=== PATIENT | male | born 1995 | race Caucasian/White ===

== ENCOUNTER 2016-12-26 00:14 | Emergency (ER) | payer SELFPAY ==
[~2016-12-26] VITALS: Ht 177.8 cm; Wt 95.5 kg
[2016-12-26 00:16] VITALS: BP 151/96
== END 2016-12-26 02:40 | disposition left against medical advice (07) ==
LOC: ED 02:30
DX: R10.9 Unspecified abdominal pain (principal); Z53.21 Procedure and treatment not carried out due to patient leaving prior to being seen by health care provider

== ENCOUNTER 2017-01-19 19:10 | Inpatient (IN) | payer OTHER ==
[~2017-01-19] VITALS: Ht 180.3 cm; Wt 93.8 kg
[2017-01-19] MEDS ORDERED: SODIUM CHLORIDE 0.9% 1,000ML IVBOLUS ONE (19:30)
[2017-01-19] MEDS ORDERED: ONDANSETRON 2MG/ML, 2ML IVPush ONE (19:30)
[2017-01-19] MEDS ORDERED: OXYC-302 PO (19:50)
[2017-01-19] MEDS ORDERED: OMEP20TA62 PO (19:50)
[2017-01-19] MEDS ORDERED: ONDANSETRON 2MG/ML, 2ML ONE (19:53)
[2017-01-19] MEDS ORDERED: HYDROmorphone 1 MG/ML, 1ML ONE ×2 (19:53→20:56)
[2017-01-19 19:54] LABS: ASPARTATE AMINO TRANSFERASE 13 U/L (15-37); BLOOD UREA NITROGEN 10 mg/dL (7-18)
[2017-01-19] MEDS: HYDROmorphone 1 MG/ML, 1ML IVPush PRN ×2 (20:00→20:58)
[2017-01-19] MEDS ORDERED: ACETAMINOPHEN 325 MG TABLET PO PRN (23:30)
[2017-01-19] MEDS: morphine SULFATE 10 MG/ML, 1ML IVPush PRN (23:33)
[2017-01-19] MEDS: SODIUM CHLORIDE 0.9% 1,000 ML IV SCH (23:33)
[2017-01-20] MEDS: morphine SULFATE 10 MG/ML, 1ML IVPush PRN ×6 (00:33→12:31)
[2017-01-20] MEDS: BISACODYL 10 MG SUPP PR SCH ×3 (00:41→15:23)
[2017-01-20 03:58] VITALS: BP 173/91
[2017-01-20 06:06] LABS: ASPARTATE AMINO TRANSFERASE 13 U/L (15-37); BLOOD UREA NITROGEN 10 mg/dL (7-18)
[2017-01-20 08:15] VITALS: BP 152/93
[2017-01-20] MEDS: SODIUM CHLORIDE 0.9% 1,000 ML IV SCH ×2 (10:31→20:28)
[2017-01-20 14:30] VITALS: BP 156/95
[2017-01-20] MEDS ORDERED: MORPHINE SULFATE 4 MG/ML, 1ML IVPush PRN (14:52)
[2017-01-20] MEDS ORDERED: BENZOCAINE 20% SPRAY 0.5ML TP ONE (15:30)
[2017-01-20] MEDS: METOCLOPRAMIDE 5 MG/ML, 2ML IVPush SCH (15:48)
[2017-01-20] MEDS: LORazepam 2 MG/ML, 1ML IVPush PRN ×2 (17:14→20:58)
[2017-01-20] MEDS: ENOXAPARIN 40 MG/0.4 ML SQ SCH (17:16)
[2017-01-20] MEDS: MORPHINE SULFATE 4 MG/ML, 1ML IVPush PRN ×2 (18:20→21:15)
[2017-01-20 19:51] VITALS: BP 142/82
[2017-01-21] MEDS: METOCLOPRAMIDE 5 MG/ML, 2ML IVPush SCH ×5 (00:23→21:54)
[2017-01-21] MEDS: MORPHINE SULFATE 4 MG/ML, 1ML IVPush PRN ×7 (00:23→21:54)
[2017-01-21] MEDS: BISACODYL 10 MG SUPP PR SCH ×3 (00:23→19:50)
[2017-01-21 02:00] VITALS: BP 149/97
[2017-01-21 05:32] LABS: ASPARTATE AMINO TRANSFERASE 14 U/L (15-37); BLOOD UREA NITROGEN 11 mg/dL (7-18)
[2017-01-21] MEDS: SODIUM CHLORIDE 0.9% 1,000 ML IV SCH ×2 (06:09→17:01)
[2017-01-21 07:19] VITALS: BP 165/114
[2017-01-21 11:28] VITALS: BP 155/97
[2017-01-21] MEDS: LORazepam 2 MG/ML, 1ML IVPush PRN ×3 (13:13→19:49)
[2017-01-21 15:13] VITALS: BP 136/87
[2017-01-21] MEDS: ENOXAPARIN 40 MG/0.4 ML SQ SCH (16:56)
[2017-01-21 19:12] VITALS: BP 133/83
[2017-01-21] MEDS: ONDANSETRON 2MG/ML, 2ML IVPush PRN (19:49)
[2017-01-22] MEDS ORDERED: PROMETHAZINE 25 MG/ML, 1ML ONE (01:06)
[2017-01-22 01:09] VITALS: BP 148/90
[2017-01-22] MEDS: PROMETHAZINE 25 MG/ML, 1ML IM PRN (01:10)
[2017-01-22] MEDS: MORPHINE SULFATE 4 MG/ML, 1ML IVPush PRN ×6 (01:10→20:40)
[2017-01-22] MEDS: SODIUM CHLORIDE 0.9% 1,000 ML IV SCH ×3 (01:10→20:40)
[2017-01-22] MEDS: METOCLOPRAMIDE 5 MG/ML, 2ML IVPush SCH ×5 (03:55→22:40)
[2017-01-22] MEDS: LORazepam 2 MG/ML, 1ML IVPush PRN ×4 (03:55→23:05)
[2017-01-22] MEDS: ONDANSETRON 2MG/ML, 2ML IVPush PRN ×2 (05:26→11:35)
[2017-01-22 06:22] LABS: BLOOD UREA NITROGEN 11 mg/dL (7-18)
[2017-01-22 07:06] VITALS: BP 156/109
[2017-01-22] MEDS: BISACODYL 10 MG SUPP PR SCH ×2 (08:00→20:40)
[2017-01-22 14:16] VITALS: BP 128/79
[2017-01-22] MEDS: ENOXAPARIN 40 MG/0.4 ML SQ SCH (16:10)
[2017-01-22 20:20] VITALS: BP 148/95
[2017-01-23] MEDS: MORPHINE SULFATE 4 MG/ML, 1ML IVPush PRN ×6 (00:45→21:39)
[2017-01-23 02:00] VITALS: BP 151/96
[2017-01-23] MEDS: LORazepam 2 MG/ML, 1ML IVPush PRN ×3 (02:15→19:45)
[2017-01-23] MEDS: ONDANSETRON 2MG/ML, 2ML IVPush PRN ×2 (02:30→16:09)
[2017-01-23] MEDS: PROMETHAZINE 25 MG/ML, 1ML IM PRN ×2 (03:00→09:30)
[2017-01-23] MEDS: SODIUM CHLORIDE 0.9% 1,000 ML IV SCH ×2 (04:50→14:05)
[2017-01-23] MEDS: METOCLOPRAMIDE 5 MG/ML, 2ML IVPush SCH ×4 (04:50→23:10)
[2017-01-23 06:59] VITALS: BP 173/104
[2017-01-23] MEDS: BISACODYL 10 MG SUPP PR SCH ×2 (09:30→21:40)
[2017-01-23 12:59] VITALS: BP 179/132
[2017-01-23 14:27] VITALS: BP 179/132
[2017-01-23] MEDS: ENOXAPARIN 40 MG/0.4 ML SQ SCH (17:03)
[2017-01-23 17:12] VITALS: BP 154/97
[2017-01-23 19:26] VITALS: BP 153/83
[2017-01-23] MEDS ORDERED: OMNIPAQUE 350 MG/ML, 100ML BOTTLE ONE (22:38)
[2017-01-24] MEDS: PROMETHAZINE 25 MG/ML, 1ML IM PRN ×3 (00:48→08:58)
[2017-01-24 01:44] VITALS: BP 161/95
[2017-01-24] MEDS: MORPHINE SULFATE 4 MG/ML, 1ML IVPush PRN ×7 (02:20→22:37)
[2017-01-24] MEDS: SODIUM CHLORIDE 0.9% 1,000 ML IV SCH ×3 (02:21→21:28)
[2017-01-24] MEDS: ONDANSETRON 2MG/ML, 2ML IVPush PRN (04:23)
[2017-01-24] MEDS: METOCLOPRAMIDE 5 MG/ML, 2ML IVPush SCH ×3 (04:53→17:35)
[2017-01-24 06:51] LABS: BLOOD UREA NITROGEN 11 mg/dL (7-18)
[2017-01-24 08:23] VITALS: BP 145/107
[2017-01-24] MEDS: BISACODYL 10 MG SUPP PR SCH ×2 (08:58→21:00)
[2017-01-24] MEDS: LORazepam 2 MG/ML, 1ML IVPush PRN ×4 (09:53→21:39)
[2017-01-24] MEDS ORDERED: MORPHINE SULFATE 4 MG/ML, 1ML IVPush PRN ×2 (10:55→14:52)
[2017-01-24 13:54] VITALS: BP 155/117
[2017-01-24] MEDS: ENOXAPARIN 40 MG/0.4 ML SQ SCH (17:24)
[2017-01-24] MEDS ORDERED: METOCLOPRAMIDE 5 MG/ML, 2ML IVPush PRN (17:30)
[2017-01-24 19:21] VITALS: BP 170/92
[2017-01-24] MEDS ORDERED: LORazepam 2 MG/ML, 1ML IVPush PRN (19:30)
[2017-01-24] MEDS ORDERED: MORPHINE SULFATE 4 MG/ML, 1ML IVPush ONE (19:30)
[2017-01-24 20:00] VITALS: BP 168/97
[2017-01-24 22:00] VITALS: BP 148/92
[2017-01-25] VITALS: BP 165/97
[2017-01-25] MEDS: LORazepam 2 MG/ML, 1ML IVPush PRN ×3 (00:38→07:44)
[2017-01-25 02:00] VITALS: BP 163/95
[2017-01-25] MEDS: MORPHINE SULFATE 4 MG/ML, 1ML IVPush PRN ×5 (02:01→21:41)
[2017-01-25 04:00] VITALS: BP 153/102
[2017-01-25 06:09] LABS: BLOOD UREA NITROGEN 9 mg/dL (7-18)
[2017-01-25 07:16] VITALS: BP 139/95
[2017-01-25] MEDS: BISACODYL 10 MG SUPP PR SCH ×2 (07:45→20:44)
[2017-01-25] MEDS: SODIUM CHLORIDE 0.9% 1,000 ML IV SCH ×2 (07:45→18:00)
[2017-01-25 13:17] VITALS: BP 172/105
[2017-01-25] MEDS: ENOXAPARIN 40 MG/0.4 ML SQ SCH (17:00)
[2017-01-25 20:00] VITALS: BP 158/102
[2017-01-25] MEDS: D5%-0.9% NACL 1,000 ML IV SCH (20:44)
[2017-01-26 02:00] VITALS: BP 136/82
[2017-01-26] MEDS: MORPHINE SULFATE 4 MG/ML, 1ML IVPush PRN (02:26)
[2017-01-26] MEDS ORDERED: MIDAZOLAM 1 MG/ML, 2ML ONE (07:06)
[2017-01-26] MEDS ORDERED: FENTANYL PF 250 MCG/5ML ONE ×2 (07:06→08:08)
[2017-01-26 07:18] VITALS: BP 141/89
[2017-01-26] MEDS ORDERED: DEXAMETHASONE 4 MG/ML, 1ML ONE (07:50)
[2017-01-26] MEDS ORDERED: ONDANSETRON 2MG/ML, 2ML ONE (07:50)
[2017-01-26] MEDS ORDERED: SUCCINYLCHOLINE 20 MG/ML, 10ML ONE (07:50)
[2017-01-26] MEDS ORDERED: KETOROLAC 30 MG/1 ML ONE (07:50)
[2017-01-26] MEDS ORDERED: CEFOTETAN 1 GM ONE (07:50)
[2017-01-26] MEDS ORDERED: PROPOFOL 10 MG/ML, 20ML ONE (07:50)
[2017-01-26] MEDS ORDERED: MIDAZOLAM 1 MG/ML, 2ML IV PRN (08:30)
[2017-01-26] MEDS ORDERED: MEPERIDINE/PF 25MG/0.5ML IVPush PRN (08:30)
[2017-01-26] MEDS ORDERED: ONDANSETRON 2MG/ML, 2ML IVPush PRN (08:30)
[2017-01-26] MEDS ORDERED: LACTATED RINGERS 1,000 ML IVBOLUS ONE (09:00)
[2017-01-26] MEDS ORDERED: FENTANYL PF 100 MCG/2ML ONE (09:09)
[2017-01-26] MEDS ORDERED: HYDROmorphone 2 MG/ML, 1ML ONE (09:09)
[2017-01-26] MEDS: HYDROmorphone 1 MG/ML, 1ML IV PRN ×2 (09:12→09:21)
[2017-01-26] MEDS: FENTANYL PF 100 MCG/2ML IV PRN ×4 (09:15→10:06)
[2017-01-26] MEDS ORDERED: LABETALOL 5MG/ML, 20ML IV PRN (09:30)
[2017-01-26] MEDS ORDERED: hydrALAzine 20 MG/ML, 1ML IV PRN (09:30)
[2017-01-26] MEDS ORDERED: hydrALAzine 20 MG/ML, 1ML ONE (10:03)
[2017-01-26 10:44] LABS: ASPARTATE AMINO TRANSFERASE 13 U/L (15-37); BLOOD UREA NITROGEN 11 mg/dL (7-18)
[2017-01-26 10:47] VITALS: BP 152/92
[2017-01-26] MEDS: KETOROLAC 30 MG/1 ML IV SCH ×3 (12:14→23:46)
[2017-01-26] MEDS: D5%-0.9% NACL 1,000 ML IV SCH ×2 (12:19→23:46)
[2017-01-26] MEDS: BISACODYL 10 MG SUPP PR SCH (12:20)
[2017-01-26 13:26] VITALS: BP 143/88
[2017-01-26] MEDS ORDERED: DIAZEPAM 5 MG/ML, 2ML IV PRN (17:00)
[2017-01-26] MEDS: ENOXAPARIN 40 MG/0.4 ML SQ SCH (17:41)
[2017-01-26 20:48] VITALS: BP 120/64
[2017-01-27 00:07] VITALS: BP 130/82
[2017-01-27 04:37] VITALS: BP 127/73
[2017-01-27] MEDS: KETOROLAC 30 MG/1 ML IV SCH ×4 (04:41→23:28)
[2017-01-27 05:35] LABS: BLOOD UREA NITROGEN 9 mg/dL (7-18)
[2017-01-27 05:37] LABS: ASPARTATE AMINO TRANSFERASE 20 U/L (15-37)
[2017-01-27 09:00] VITALS: BP 127/76
[2017-01-27] MEDS ORDERED: BISACODYL 10 MG SUPP PR PRN ×2 (09:00→21:30)
[2017-01-27] MEDS: D5%-0.9% NACL 1,000 ML IV SCH ×2 (10:30→21:01)
[2017-01-27 12:40] VITALS: BP 142/72
[2017-01-27] MEDS: ENOXAPARIN 40 MG/0.4 ML SQ SCH (17:47)
[2017-01-27 18:54] LABS: BLOOD UREA NITROGEN 8 mg/dL (7-18)
[2017-01-27 18:57] LABS: ASPARTATE AMINO TRANSFERASE 20 U/L (15-37)
[2017-01-27 19:16] VITALS: BP 143/78
[2017-01-27] MEDS ORDERED: ACETAMINOPHEN 325 MG TABLET PO PRN (21:30)
[2017-01-28 02:00] VITALS: BP 122/70
[2017-01-28] MEDS: KETOROLAC 30 MG/1 ML IV SCH ×4 (05:09→23:10)
[2017-01-28] MEDS: D5%-0.9% NACL 1,000 ML IV SCH ×3 (05:09→17:27)
[2017-01-28 06:22] LABS: DIFF TOTAL CELLS COUNTED 100 CELL DIFF
[2017-01-28 06:26] LABS: ANISOCYTOSIS 1+; VERIFY COUNTS? YES
[2017-01-28 06:52] VITALS: BP 126/75
[2017-01-28 12:43] VITALS: BP 116/71
[2017-01-28] MEDS: ENOXAPARIN 40 MG/0.4 ML SQ SCH (17:23)
[2017-01-28 19:20] VITALS: BP 112/58
[2017-01-28] MEDS: LORazepam 2 MG/ML, 1ML IVPush PRN (23:10)
[2017-01-29 05:10] VITALS: BP 140/88
[2017-01-29 05:41] LABS: BLOOD UREA NITROGEN 8 mg/dL (7-18)
[2017-01-29] MEDS: KETOROLAC 30 MG/1 ML IV SCH ×4 (05:45→23:33)
[2017-01-29 06:34] VITALS: BP 143/83
[2017-01-29] MEDS: D5%-0.9% NACL 1,000 ML IV SCH ×2 (07:04→23:33)
[2017-01-29] MEDS ORDERED: POTASSIUM PHOSPHATE 22 MEQ in SODIUM CHLORIDE 0.9% 500 ML IV ONE (09:30)
[2017-01-29 13:12] VITALS: BP 138/91
[2017-01-29] MEDS: ENOXAPARIN 40 MG/0.4 ML SQ SCH (17:24)
[2017-01-29 20:01] VITALS: BP 151/94
[2017-01-29] MEDS: LORazepam 2 MG/ML, 1ML IVPush PRN (23:33)
[2017-01-30 00:09] VITALS: BP 144/95
[2017-01-30] MEDS: KETOROLAC 30 MG/1 ML IV SCH ×3 (05:25→18:00)
[2017-01-30 06:19] LABS: BLOOD UREA NITROGEN 12 mg/dL (7-18)
[2017-01-30 06:30] LABS: ASPARTATE AMINO TRANSFERASE 37 U/L (15-37)
[2017-01-30 07:26] VITALS: BP 146/98
[2017-01-30] MEDS ORDERED: ALUMINUM/MAG/SIMETHICONE 30 ML UDC PO ONE (12:30)
[2017-01-30 13:24] VITALS: BP 142/87
[2017-01-30] MEDS: OXYcodone 5 MG/5 ML ORAL.SOL UDC PO PRN ×3 (15:22→23:28)
[2017-01-30] MEDS: ENOXAPARIN 40 MG/0.4 ML SQ SCH (17:00)
[2017-01-30] MEDS: ALUMINUM/MAG/SIMETHICONE 30 ML UDC PO PRN ×2 (18:20→22:20)
[2017-01-30 18:41] VITALS: BP 154/93
[2017-01-31 02:51] VITALS: BP 136/86
[2017-01-31] MEDS: ALUMINUM/MAG/SIMETHICONE 30 ML UDC PO PRN ×2 (03:43→08:35)
[2017-01-31] MEDS: OXYcodone 5 MG/5 ML ORAL.SOL UDC PO PRN ×2 (03:43→08:35)
[2017-01-31 05:19] LABS: ASPARTATE AMINO TRANSFERASE 49 U/L (15-37); BLOOD UREA NITROGEN 9 mg/dL (7-18)
[2017-01-31 07:15] VITALS: BP 141/93
[2017-01-31] MEDS ORDERED: POTASSIUM CHLORIDE 20 MEQ TAB.ER.PRT PO ONE (09:00)
[2017-01-31] MEDS ORDERED: POTASSIUM CHLORIDE 10% 40 MEQ/30 ML UDC PO ONE (09:00)
[2017-01-31 11:14] VITALS: BP 144/93
[2017-01-31] MEDS ORDERED: OXYC-302 PO (12:06)
[2017-01-31] MEDS ORDERED: MAG355OR14 PO (12:07)
== END 2017-01-31 12:25 | disposition home or self-care (01) | DRG 330 ==
LOC: ED 20:40 → EDIP 21:09 → 3NE 22:48 → 4EST 01-24 20:10 → 4NOR 01-26 10:35 → DCLOUNGE 01-31 12:01
PROVIDERS: ADMIT Internal Medicine; ATTEND Internal Medicine
PROC: 0DB80ZZ Excision of Small Intestine, Open Approach (ICD-10-PCS; principal; 2017-01-19)
DX: K56.5 Intestinal adhesions [bands] with obstruction (postinfection) (principal); E87.1 Hypo-osmolality and hyponatremia; R65.10 Systemic inflammatory response syndrome (SIRS) of non-infectious origin without acute organ dysfunction; K56.0 Paralytic ileus; J45.909 Unspecified asthma, uncomplicated; I10 Essential (primary) hypertension; D72.828 Other elevated white blood cell count; R00.0 Tachycardia, unspecified; D50.9 Iron deficiency anemia, unspecified
CPT/HCPCS: 36415; 74000; 74020; 74177; 80048; 80053; 81001; 82247; 82728; 83540; 83550; 83690; 83735; 84100; 85025; 88307; 96374; 96375; 96376; J1100; J1170; J1650; J1885; J2250; J2270; J2405; J2550; J2704; J3010; J7042; Q9967; C1765; J0330; J0360; J2060; J2765; J7030; J7040; S0074

== ENCOUNTER 2017-02-06 14:33 | Emergency (ER) | payer SELFPAY ==
[~2017-02-06] VITALS: Ht 180.3 cm; Wt 86.1 kg
[~2017-02-06 14:33] MED LIST: MAG355OR14 PO; OMEP20TA62 PO; OXYC-302 PO
[2017-02-06] MEDS ORDERED: CEFDINIR 300 MG CAPSULE PO ONE (17:00)
[2017-02-06 17:17] VITALS: BP 129/75
== END 2017-02-06 17:39 | disposition home or self-care (01) ==
LOC: ED 16:56
DX: R10.9 Unspecified abdominal pain (principal)
CPT/HCPCS: 87070; 87075; 87205; 99283

== ENCOUNTER 2017-03-15 07:24 | Observation (INO) | payer MEDICAID ==
[~2017-03-15] VITALS: Ht 180.3 cm; Wt 92.2 kg
[2017-03-15] MEDS ORDERED: HYDROmorphone 1 MG/ML, 1ML IVPush PRN (08:00)
[2017-03-15] MEDS ORDERED: SODIUM CHLORIDE 0.9% 1,000ML IVBOLUS ONE (08:00)
[2017-03-15] MEDS ORDERED: SODIUM CHLORIDE FLUSH 10ML SYR IVF ONE (08:00)
[2017-03-15] MEDS ORDERED: ONDANSETRON 2MG/ML, 2ML IVPush ONE (08:00)
[2017-03-15] MEDS ORDERED: ONDANSETRON 2MG/ML, 2ML ONE (08:08)
[2017-03-15] MEDS ORDERED: HYDROmorphone 1 MG/ML, 1ML ONE (08:08)
[2017-03-15 08:54] LABS: BLOOD UREA NITROGEN 10 mg/dL (7-18)
[2017-03-15 08:57] LABS: ASPARTATE AMINO TRANSFERASE 8 U/L (15-37)
[2017-03-15] MEDS ORDERED: OMNIPAQUE 350 MG/ML, 100ML BOTTLE ONE (09:24)
[2017-03-15] MEDS ORDERED: D5%-0.45NACL+KCL 20MEQ 1,000 ML IV SCH ×2 (13:31→22:30)
[2017-03-15] MEDS ORDERED: morphine SULFATE 10 MG/ML, 1ML IVPush PRN (14:00)
[2017-03-15] MEDS ORDERED: DOCUSATE 100 MG CAPSULE PO PRN (14:00)
[2017-03-15] MEDS ORDERED: GUAIFENESIN/DM 200-20MG, 10ML UDC PO PRN (14:00)
[2017-03-15] MEDS ORDERED: ACETAMINOPHEN 325 MG TABLET PO PRN (14:00)
[2017-03-15] MEDS ORDERED: ONDANSETRON 2MG/ML, 2ML IVPush PRN (14:00)
[2017-03-15] MEDS ORDERED: ZOLPIDEM 5MG TABLET PO PRN (14:00)
[2017-03-15] MEDS ORDERED: LABETALOL 5MG/ML, 20ML IVPush PRN (14:00)
[2017-03-15 19:55] VITALS: BP 119/78
[2017-03-16 02:00] VITALS: BP 125/64
[2017-03-16 05:41] LABS: BLOOD UREA NITROGEN 8 mg/dL (7-18)
[2017-03-16 05:53] LABS: ASPARTATE AMINO TRANSFERASE 10 U/L (15-37)
[2017-03-16 07:27] VITALS: BP 122/69
[2017-03-16 13:43] VITALS: BP 121/71
== END 2017-03-16 17:30 | disposition home or self-care (01) ==
LOC: ED 09:00 → EDIP 12:05 → INTOOBSV 12:05 → 4NOR 14:14
PROVIDERS: ADMIT Hospitalist; ATTEND Hospitalist
DX: R10.32 Left lower quadrant pain (principal); D50.9 Iron deficiency anemia, unspecified; J45.909 Unspecified asthma, uncomplicated; K56.7 Ileus, unspecified; K58.9 Irritable bowel syndrome, unspecified; A08.4 Viral intestinal infection, unspecified; K56.60 Unspecified intestinal obstruction; Z90.49 Acquired absence of other specified parts of digestive tract
CPT/HCPCS: 36415; 74177; 80053; 81003; 83690; 83735; 84100; 84443; 85025; 87015; 87046; 87206; 87899; 89055; 96361; 96374; 96375; 99285; G0378; J1170; J2405; J3480; J7030; Q9967

== ENCOUNTER 2017-07-04 06:04 | Emergency (ER) | payer MEDICAID ==
[~2017-07-04] VITALS: Ht 177.8 cm; Wt 104.1 kg
[2017-07-04 06:05] VITALS: BP 140/88
[2017-07-04] MEDS ORDERED: DIPHENHYDRAMINE 25 MG CAPSULE PO ONE (07:00)
[2017-07-04] MEDS ORDERED: DIPHENHYDRAMINE 25 MG CAPSULE ONE (07:01)
== END 2017-07-04 08:23 | disposition home or self-care (01) ==
LOC: ED 08:00
DX: H57.13 Ocular pain, bilateral (principal); Z90.49 Acquired absence of other specified parts of digestive tract
CPT/HCPCS: 99283; J7512; Q0163

== ENCOUNTER 2018-11-10 18:48 | Inpatient (IN) | payer MEDICAID ==
[~2018-11-10] VITALS: Ht 177.8 cm; Wt 96.1 kg
[2018-11-10] MEDS ORDERED: MORPHINE SULFATE 4 MG/ML, 1ML ONE (19:42)
[2018-11-10] MEDS ORDERED: ONDANSETRON 2MG/ML, 2ML ONE (19:42)
--- NOTE | 2018-11-10 19:48 | NUR ---
PROVIDED PT WITH URINE CUP FOR URINE SAMPLE, PT UNAVLE TO VOID AT THIS TIME
[2018-11-10] MEDS ORDERED: SODIUM CHLORIDE FLUSH 10ML SYR IVF ONE (20:00)
[2018-11-10] MEDS ORDERED: ONDANSETRON 2MG/ML, 2ML IVPush ONE (20:00)
[2018-11-10] MEDS ORDERED: MORPHINE SULFATE 4 MG/ML, 1ML IVPush PRN (20:00)
--- NOTE | 2018-11-10 20:18 | NUR ---
PT MEDICATED PER MAR
[2018-11-10 20:38] LABS: BASOPHILS # (AUTO) 0.02 x10^3/uL (0-0.1); BASOPHILS % (AUTO) 0 % (0-1); EOSINOPHILS # (AUTO) 0.02 x10^3/uL (0-0.4); EOSINOPHILS % (AUTO) 0 % (1-7); LYMPHOCYTES # (AUTO) 0.54 x10^3/uL (1-3.4); LYMPHOCYTES % (AUTO) 3 % (22-44); MD NO; MEAN CORPUSCULAR HEMOGLOBIN 27.1 pg (27.5-34.5); MEAN CORPUSCULAR HGB CONC 32.8 g/dL (33.2-36.2); MEAN CORPUSCULAR VOLUME 82.7 fL (81-97); MEAN PLATELET VOLUME 7.9 fL (7.4-10.4); MONOCYTES % (AUTO) 4 % (2-9); NEUTROPHILS # (AUTO) 14.73 x10^3/uL (1.8-6.8); NEUTROPHILS % (AUTO) 93 % (42-75); PLATELET COUNT 373 x10^3/uL (130-400); RED BLOOD COUNT 6.28 x10^6/uL (4.38-5.82); RED CELL DISTRIBUTION WIDTH 13.6 % (9.4-14.8)
[2018-11-10 20:50] LABS: ALANINE AMINOTRANSFERASE 31 U/L (12-78); ALBUMIN 4.7 g/dL (3.4-5.0); ANION GAP 7 mmol/L (5-15); CALCIUM 9.2 mg/dL (8.5-10.1); CHLORIDE 106 mmol/L (98-107); CREATININE 1.19 mg/dL (0.7-1.3)
[2018-11-10 20:52] LABS: ALKALINE PHOSPHATASE 70 U/L (45-117); BILIRUBIN,TOTAL 1.1 mg/dL (0.2-1.0); TOTAL PROTEIN 8.5 g/dL (6.4-8.2)
--- NOTE | 2018-11-10 20:54 | NUR ---
urine sample taken to lab
[2018-11-10 21:06] LABS: MICROSCOPIC INDICATED
--- NOTE | 2018-11-10 21:10 | NUR ---
PT TO CT
[2018-11-10 21:18] LABS: CULTURE INDICATED? NO
[2018-11-10] MEDS ORDERED: OMNIPAQUE 350 MG/ML, 100ML BOTTLE ONE (21:39)
--- NOTE | 2018-11-10 22:23 | NUR ---
pt resting calmly, monitors in place, siderails up x2, stated pain is much better, call light within reach. pt to be admitted
[2018-11-11 00:30] VITALS: BP 128/70
[2018-11-11] MEDS ORDERED: DOCUSATE 100 MG CAPSULE PO PRN (00:30)
[2018-11-11] MEDS ORDERED: ONDANSETRON ODT 4 MG PO PRN (00:30)
[2018-11-11] MEDS ORDERED: hydrALAzine 20 MG/ML, 1ML IVPush PRN (00:30)
[2018-11-11] MEDS ORDERED: BISACODYL 10 MG SUPP PR PRN (00:30)
[2018-11-11] MEDS ORDERED: POLYETHYLENE GLYCOL 17 GM PACKET PO PRN (00:30)
[2018-11-11] MEDS ORDERED: ONDANSETRON 2MG/ML, 2ML IVPush PRN (00:30)
[2018-11-11] MEDS ORDERED: PROMETHAZINE 25 MG/ML, 1ML IM PRN (00:30)
[2018-11-11 01:01] LABS: FREE T4 (FREE THYROXINE) 0.93 ng/dL (0.76-1.46); THYROID STIMULATING HORMONE 0.373 mIU/L (0.358-3.740)
[2018-11-11 01:05] LABS: HEMOGLOBIN A1C 5.6 % (4.2-6.3)
[2018-11-11] MEDS: HEPARIN 5,000 UNITS/ML, 1ML SQ SCH ×3 (01:06→17:17)
[2018-11-11] MEDS: SODIUM CHLORIDE 0.9% 1,000 ML IV SCH ×3 (01:06→17:17)
[2018-11-11] MEDS: morphine SULFATE 10 MG/ML, 1ML IVPush PRN ×2 (01:07→08:21)
[2018-11-11 06:15] LABS: BASOPHILS # (AUTO) 0.04 x10^3/uL (0-0.1); BASOPHILS % (AUTO) 0 % (0-1); EOSINOPHILS # (AUTO) 0.01 x10^3/uL (0-0.4); EOSINOPHILS % (AUTO) 0 % (1-7); LYMPHOCYTES # (AUTO) 0.68 x10^3/uL (1-3.4); LYMPHOCYTES % (AUTO) 6 % (22-44); MD NO; MEAN CORPUSCULAR HEMOGLOBIN 27.3 pg (27.5-34.5); MEAN CORPUSCULAR HGB CONC 33.2 g/dL (33.2-36.2); MEAN CORPUSCULAR VOLUME 82.3 fL (81-97); MEAN PLATELET VOLUME 8.3 fL (7.4-10.4); MONOCYTES # (AUTO) 1.11 x10^3/uL (0.2-0.8); MONOCYTES % (AUTO) 10 % (2-9); NEUTROPHILS # (AUTO) 9.82 x10^3/uL (1.8-6.8); NEUTROPHILS % (AUTO) 84 % (42-75); PLATELET COUNT 382 x10^3/uL (130-400); RED BLOOD COUNT 5.71 x10^6/uL (4.38-5.82); RED CELL DISTRIBUTION WIDTH 13.4 % (9.4-14.8)
[2018-11-11 06:33] LABS: CHLORIDE 108 mmol/L (98-107)
[2018-11-11 06:44] LABS: ALANINE AMINOTRANSFERASE 25 U/L (12-78); ALKALINE PHOSPHATASE 61 U/L (45-117); ANION GAP 9 mmol/L (5-15); BILIRUBIN,TOTAL 1.2 mg/dL (0.2-1.0); CALCIUM 8.4 mg/dL (8.5-10.1); CHOL/HDL RATIO 2.5; CHOLESTEROL, TOTAL 155 mg/dL (140-239); CREATININE 1.15 mg/dL (0.7-1.3); HDL CHOL % 41 % (26-37); HDL CHOLESTEROL (DIRECT) 63 mg/dL (40-60); LDL CHOLESTEROL,CALCULATED 76 mg/dL (54-169); LDL/HDL RATIO 1.2 (0.5-3.0); TOTAL PROTEIN 7.6 g/dL (6.4-8.2); TRIGLYCERIDES 82 mg/dL (50-200); VLDL CHOLESTEROL 16 mg/dL (0-25)
[2018-11-11 06:50] VITALS: BP 120/70
[2018-11-11 13:09] VITALS: BP 119/80
[2018-11-11] MEDS ORDERED: SINCALIDE (KINEVAC) 5 MCG ONE (15:52)
[2018-11-11 21:07] VITALS: BP 125/82
[2018-11-12] MEDS: HEPARIN 5,000 UNITS/ML, 1ML SQ SCH ×2 (00:38→08:44)
[2018-11-12] MEDS: SODIUM CHLORIDE 0.9% 1,000 ML IV SCH (04:00)
[2018-11-12 05:26] VITALS: BP 116/75
[2018-11-12 06:54] VITALS: BP 128/75
[2018-11-12 09:58] LABS: BASOPHILS # (AUTO) 0.04 x10^3/uL (0-0.1); BASOPHILS % (AUTO) 1 % (0-1); EOSINOPHILS # (AUTO) 0.23 x10^3/uL (0-0.4); EOSINOPHILS % (AUTO) 3 % (1-7); LYMPHOCYTES # (AUTO) 1.85 x10^3/uL (1-3.4); LYMPHOCYTES % (AUTO) 28 % (22-44); MD NO; MEAN CORPUSCULAR HEMOGLOBIN 26.4 pg (27.5-34.5); MEAN CORPUSCULAR HGB CONC 31.7 g/dL (33.2-36.2); MEAN CORPUSCULAR VOLUME 83.3 fL (81-97); MEAN PLATELET VOLUME 7.8 fL (7.4-10.4); MONOCYTES % (AUTO) 18 % (2-9); NEUTROPHILS % (AUTO) 50 % (42-75); PLATELET COUNT 309 x10^3/uL (130-400); RED BLOOD COUNT 5.33 x10^6/uL (4.38-5.82)
[2018-11-12] MEDS ORDERED: DOCU-131 PO (10:07)
[2018-11-12] MEDS ORDERED: ONDA4TAB13 PO (10:07)
[2018-11-12 10:34] VITALS: BP 138/78
== END 2018-11-12 11:49 | disposition home or self-care (01) | DRG 391 ==
LOC: ED 22:17 → EDIP 22:47 → 4NOR 23:40 → DCLOUNGE 11-12 11:35
PROVIDERS: ADMIT Internal Medicine; ATTEND Internal Medicine
DX: K52.9 Noninfective gastroenteritis and colitis, unspecified (principal); K22.6 Gastro-esophageal laceration-hemorrhage syndrome; R55 Syncope and collapse; J45.909 Unspecified asthma, uncomplicated; E86.0 Dehydration; R10.9 Unspecified abdominal pain; D72.823 Leukemoid reaction; Z90.49 Acquired absence of other specified parts of digestive tract; Z88.8 Allergy status to other drugs, medicaments and biological substances
CPT/HCPCS: 36415; 71045; 74177; 78227; 80053; 80061; 81001; 83036; 83605; 83690; 83735; 84100; 84439; 84443; 85025; 93005; 96374; 96375; G0378; J1644; J2405; J2550; Q9967; A9537; C9898; J2270; J2805; J7030